=== PATIENT | female | born 1990 | race Caucasian/White ===

== ENCOUNTER 2018-08-07 17:16 | Emergency (ER) | payer BC ==
[~2018-08-07] VITALS: Ht 165.1 cm; Wt 59.0 kg
[2018-08-07 17:28] VITALS: BP 122/65
--- NOTE | 2018-08-07 17:41 | Emergency Room Report ---
History of Present Illness General Chief Complaint: General Complaint Present Illness HPI Patient is a 28-year-old female presents after increased generalized weakness as well as hand numbness. Patient reports having prior history of anemia. She reports having some feeling of lightheadedness and has had prior history of hypotension. Patient states this is previously been attributed to use of medications for interstitial cystitis. Patient had not been vomiting or having any diarrhea. She reports having increased symptoms onset just prior to arrival. Patient states that she had not been having any bleeding or abdominal pain. Patient denies any dysuria Allergies: Coded Allergies: No Known Allergies (Unverified , 08/07/18) Patient History Past Medical History: other - thallasemia, interstitial cystitis Now: No Reviewed Nursing Documentation: PMH: Agreed; PSxH: Agreed Nursing Documentation-PMH Hx Neurological Problems: Yes - anxiety Review of Systems All Other Systems: negative except mentioned in HPI Physical Exam Vital Signs Date Time Temp Pulse Resp B/P (MAP) Pulse Ox O2 Delivery O2 Flow Rate FiO2 08/07/18 17:14 97.5 90 20 150/74 100 Room Air 08/07/18 17:28 100 Sp02 EP Interpretation: reviewed, normal General Appearance: normal inspection, well appearing, no apparent distress, alert, GCS 15, non-toxic Head: normocephalic, atraumatic ENT: normal ENT inspection, hearing grossly normal, normal voice Neck: normal inspection, supple, no bony tend Respiratory: normal inspection, no respiratory distress, no retraction Cardiovascular #1: regular rate, rhythm, no edema Gastrointestinal: normal inspection, soft, no guarding, no hernia Musculoskeletal: normal inspection, back normal, normal range of motion Neurologic: normal inspection, alert, oriented x3, responsive, lockstitch front edge tape sewer III-XII nml as tested, speech normal Psychiatric: normal inspection, judgement/insight normal, anxious Skin: normal inspection, normal color, no rash Medical Decision Making Diagnostic Impression: Primary Impression: Anxiety Additional Impression: Anemia ER Course Patient presented for increased dizziness. Differential diagnosis includes is not limited to anemia, acidosis, hyperthyroidism, benzodiazepine withdrawal among others. Because of complexity of patient's case laboratory testing and imaging studies were ordered. Patient was noted to have some evidence of anemia on laboratory testing. Patient stated that she had previous history of thalassemia. Patient was given medications for anxiety. she is noted to have some improvement in her symptoms. Patient appears to be primarily anxious and this does not appear to be a medical condition at this time. Laboratory testing showed no evidence of metabolic acidosis. Patient does not have any risk factors for pulmonary embolism. The patient is advised to follow up with primary care doctor. Patient is advised to return if any worsening condition or if any changes in status that are concerning. This report is dictated with [employer] cryolite recovery operator software which may occasionally lead to discrepancies related to use of this software. Labs Test 08/07/18 17:56 White Blood Count 7.5 K/UL (4.8-10.8) Red Blood Count 5.61 M/UL (4.20-5.40) Hemoglobin 10.8 G/DL (12.0-16.0) Hematocrit 36.5 % (37.0-47.0) Mean Corpuscular Volume 65 FL (80-99) Mean Corpuscular Hemoglobin 19.3 PG (27.0-31.0) Mean Corpuscular Hemoglobin Concent 29.7 G/DL (32.0-36.0) Red Cell Distribution Width 11.4 % (11.6-14.8) Platelet Count 319 K/UL (150-450) Mean Platelet Volume 8.2 FL (6.5-10.1) Neutrophils (%) (Auto) 56.7 % (45.0-75.0) Lymphocytes (%) (Auto) 31.7 % (20.0-45.0) Monocytes (%) (Auto) 7.5 % (1.0-10.0) Eosinophils (%) (Auto) 3.0 % (0.0-3.0) Basophils (%) (Auto) 1.0 % (0.0-2.0) Prothrombin Time 10.7 SEC (9.30-11.50) Prothromb Time International Ratio 1.0 (0.9-1.1) Activated Partial Thromboplast Time 29 SEC (23-33) Urine Color Pale yellow Urine Appearance Clear Urine pH 8 (4.5-8.0) Urine Specific [place] 1.010 (1.005-1.035) Urine Protein Negative (NEGATIVE) Urine Glucose (UA) Negative (NEGATIVE) Urine Ketones Negative (NEGATIVE) Urine Blood Negative (NEGATIVE) Urine Nitrite Negative (NEGATIVE) Urine Bilirubin Negative (NEGATIVE) Urine Urobilinogen Normal MG/DL (0.0-1.0) Urine Leukocyte Esterase 3+ (NEGATIVE) Urine RBC 0-2 /HPF (0 - 2) Urine WBC 2-4 /HPF (0 - 2) Urine Squamous Epithelial Cells Few /LPF (NONE/OCC) Urine Bacteria Few /HPF (NONE) Urine HCG, Qualitative Negative (NEGATIVE) Sodium Level 139 MMOL/L (136-145) Potassium Level 3.6 MMOL/L (3.5-5.1) Chloride Level 105 MMOL/L (98-107) Carbon Dioxide Level 24 MMOL/L (21-32) Anion Gap 10 mmol/L (5-15) Blood Urea Nitrogen 12 mg/dL (7-18) Creatinine 0.9 MG/DL (0.55-1.30) Estimat Glomerular Filtration Rate > 60 mL/min (>60) Glucose Level 102 MG/DL (74-106) Calcium Level 9.1 MG/DL (8.5-10.1) Magnesium Level 1.9 MG/DL (1.8-2.4) Total Bilirubin 0.6 MG/DL (0.2-1.0) Aspartate Amino Transf (AST/SGOT) 14 U/L (15-37) Alanine Aminotransferase (ALT/SGPT) 14 U/L (12-78) Alkaline Phosphatase 83 U/L (46-116) Troponin I 0.009 ng/mL (0.000-0.056) Total Protein 8.1 G/DL (6.4-8.2) Albumin 4.4 G/DL (3.4-5.0) Globulin 3.7 g/dL Albumin/Globulin Ratio 1.2 (1.0-2.7) Lipase 188 U/L (73-393) Thyroid Stimulating Hormone (TSH) 2.042 uiU/mL (0.358-3.740) Last Vital Signs Date Time Temp Pulse Resp B/P (MAP) Pulse Ox O2 Delivery O2 Flow Rate FiO2 08/07/18 17:28 97.6 87 10 122/65 100 Room Air 08/07/18 17:28 100 Status: improved Disposition: HOME, SELF-CARE Condition: Stable Scripts Lorazepam* (ATIVAN*) 1 Mg Tablet 1 MG ORAL THREE TIMES A DAY for anxiety, #10 TAB Prov: Selwyn Brandon MD 08/07/18 Selwyn Brandon MD Aug 07, 2018 17:41
[2018-08-07] MEDS ORDERED: Sodium Chloride 500ML 500 ML IV ONE (17:45)
[2018-08-07] MEDS ORDERED: LORazepam 1mg tab ORAL ONE (18:15)
[2018-08-07 18:16] LABS: APPEARANCE,URINE CLEAR; BILIRUBIN, URINE NEGATIVE (NEGATIVE); COLOR,URINE PALE YELLOW; GLUCOSE, URINE (UA) NEGATIVE (NEGATIVE); KETONES,URINE NEGATIVE (NEGATIVE); LEUKOCYTE ESTERASE ,URINE 3+ (NEGATIVE); NITRITE,URINE NEGATIVE (NEGATIVE); PH,URINE 8 (4.5-8.0); PROTEIN,URINE NEGATIVE (NEGATIVE); UROBILINOGEN,URINE NORMAL MG/DL (0.0-1.0)
[2018-08-07 18:22] LABS: HEMATOCRIT 36.5 % (37.0-47.0); HEMOGLOBIN 10.8 G/DL (12.0-16.0); LYMPHOCYTES % (AUTO) 31.7 % (20.0-45.0); MEAN CORPUSCULAR VOLUME 65 FL (80-99); MONOCYTES % (AUTO) 7.5 % (1.0-10.0); NEUTROPHILS % (AUTO) 56.7 % (45.0-75.0); PLATELET COUNT 319 K/UL (150-450); RED BLOOD COUNT 5.61 M/UL (4.20-5.40); RED CELL DISTRIBUTION WIDTH 11.4 % (11.6-14.8); WHITE BLOOD COUNT 7.5 K/UL (4.8-10.8)
[2018-08-07 18:29] LABS: ANION GAP 10 mmol/L (5-15); BLOOD UREA NITROGEN 12 mg/dL (7-18); CALCIUM 9.1 MG/DL (8.5-10.1); CARBON DIOXIDE 24 MMOL/L (21-32); CHLORIDE 105 MMOL/L (98-107); CREATININE 0.9 MG/DL (0.55-1.30); POTASSIUM 3.6 MMOL/L (3.5-5.1); SODIUM 139 MMOL/L (136-145)
[2018-08-07 18:41] LABS: ALANINE AMINOTRANSFERASE 14 U/L (12-78); ALBUMIN 4.4 G/DL (3.4-5.0); ALBUMIN/GLOBULIN RATIO 1.2 (1.0-2.7); ALKALINE PHOSPHATASE 83 U/L (46-116); ASPARTATE AMINO TRANSFERASE 14 U/L (15-37); BILIRUBIN,TOTAL 0.6 MG/DL (0.2-1.0)
[2018-08-07] MEDS ORDERED: ATIVAN1 MG ORAL (18:47)
[2018-08-07 19:06] VITALS: BP 119/70
== END 2018-08-07 19:12 | disposition home or self-care (01) ==
LOC: EDBD 17:16 → EMR 17:54
DX: F41.9 Anxiety disorder, unspecified (principal); D56.9 Thalassemia, unspecified
CPT/HCPCS: 36415; 80053; 81001; 81025; 83690; 83735; 84443; 84484; 85025; 85610; 85730; 93005; 99284; J7040